=== PATIENT | female | born 1955 | race Caucasian/White ===

== ENCOUNTER 2018-02-28 08:11 | Day surgery (SDC) | payer BC ==
--- NOTE | 2018-02-16 22:47 | HP ---
PREOPERATIVE HISTORY AND PHYSICAL: DATE OF ADMISSION/SURGERY: 02/28/18 - [facility] DATE OF OFFICE VISIT: 02/15/18 ATTENDING SURGEON: Dr. Jerald Nix.* (DICTATED BY FRANNIE HACKETT) PROCEDURE: Left shoulder arthroscopic decompression and debridement. CHIEF COMPLAINT: Left shoulder. HISTORY OF PRESENT ILLNESS: Sharon is a 62-year-old female, who presents to clinic for left shoulder pain due to calcific tendinitis. She has failed conservative measures and therefore, agreed to undergo a left shoulder arthroscopic decompression and debridement with Dr. Nix on 02/28/18. PAST MEDICAL HISTORY: Hypertension, colitis, basal cell carcinoma. PAST SURGICAL HISTORY: Back surgery, tubal ligation, breast biopsy, skin cancer removal, varicose veins, cataracts. No prior complications with anesthesia. She does have some nausea with anesthesia. MEDICATIONS: 1. Amlodipine besylate/atorvastatin calcium 10/20 mg 1 by mouth every day. 2. Losartan potassium 50 mg 1 by mouth every day. 3. Vitamin D2 1000 units 1 capsule by mouth daily. 4. Vitamin B 1 by mouth daily. 5. Fish oil 1000 mg 1 by mouth daily. 6. Magnesium 300 mg 1 by mouth twice a day. 7. Melatonin 10 mg 1 by mouth at bedtime as needed for insomnia. 8. Ibuprofen 200d mg 2 to 3 tabs as needed for pain. ALLERGIES: No known drug allergies. FAMILY HISTORY: Positive for diabetes, hypertension, cancer. SOCIAL HISTORY: She lives with her spouse. She is retired. She denies tobacco use. She reports occasional alcohol consumption. She is right-hand dominant. REVIEW OF SYSTEMS: A 14-point review of systems was reviewed with the patient. Positive for current complaint, otherwise negative. Denies fever, chills, chest pain, shortness of breath, history of bleeding disorder, history of DVT or PE. PHYSICAL EXAMINATION GENERAL: A 62-year-old well-developed, well-nourished female, in no acute distress. VITAL SIGNS: Height 64, weight 199, pulse 104, blood pressure 126/68, respiratory rate 20, temperature 97.5, BMI 34.2. HEENT: Normocephalic, atraumatic. PERRLA. Throat clear. NECK: Supple. PULMONARY: Lungs are clear to auscultation bilaterally. No wheezing, rhonchi, or rales. CARDIO: Regular rate and rhythm. S1, S2. No murmurs, gallops, or rubs. No edema. ABDOMEN: Positive bowel sounds. Soft, nontender. NEURO: Alert and oriented x3. Cranial nerves grossly intact. Sensation intact to light touch. MUSCULOSKELETAL: Left upper extremity, skin is intact. Nontender to palpation. Forward flexion to 150, abduction to 110, external rotation to 45, internal rotation to posterior iliac spine. +5/5 strength to rotator cuff testing with minimal discomfort. Positive impingement, Speeds, [place] , [place]. +2 radial pulses. Sensation intact to light touch distally. DIAGNOSTIC STUDIES: MRI revealed no full-thickness rotator cuff tear. She does have calcific lesion in the rotator cuff with fluid around the bicipital groove and mild subluxation of the humeral head indicating partial-thickness tear of the subscapularis as well as AC joint osteoarthritis. IMPRESSION: Left shoulder calcific tendinitis. PLAN: The patient is scheduled to undergo a left shoulder arthroscopic decompression and debridement with Dr. Nix on 02/28/18. She will follow up 10 to 14 days postop for followup and suture removal. Percocet will be used for postop pain management. FRANNIE HACKETT [id number]/[facility] #: [id number] YARITZA
[~2018-02-28 08:11] MED LIST: Buffered Lidocaine 0.9% SYRIN* 5 ML/SYR SYRINGE INTRADERM ONE; Famotidine IV* 10 MG/ML 2 ML (20 mg) IV ONE; Midazolam* 1 MG/ML 5 ML VIAL (5 MG) ONE; Scopolamine 1.5 mg* PATCH TRANSDERM SCH; fentaNYL* 50 MCG/ML 2 ML VIAL (100 MCG VIAL) ONE
[2018-02-28] MEDS ORDERED: Famotidine IV* 10 MG/ML 2 ML (20 mg) ONE (08:23)
[2018-02-28] MEDS ORDERED: ceFAZolin 2 GM PREMIX in ORs 2 GM/50 ML BAG IVPB ONE (08:23)
[2018-02-28] MEDS ORDERED: Scopolamine 1.5 mg* PATCH ONE (08:23)
[2018-02-28] MEDS ORDERED: Lidocaine 1% INJ* 10 MG/ML 30 ML SDV ONE (08:31)
[2018-02-28] MEDS ORDERED: ROPIVACAINE 5 MG/ML 30 ML BTL (0.5%) ONE (08:31)
[2018-02-28] MEDS ORDERED: oxyCODONE TAB* 5 MG TAB PO PRN (08:38)
[2018-02-28] MEDS ORDERED: DiMENhydriNATE IV* 50 MG/ML VIAL IV PUSH PRN (08:38)
[2018-02-28] MEDS ORDERED: Naloxone* 0.4 MG/ML 1 ML VIAL IV PRN (08:38)
[2018-02-28] MEDS ORDERED: Acetaminophen TAB* 325 MG PO PRN (08:38)
[2018-02-28] MEDS ORDERED: HYDROmorphone INJ1* 1 MG/ML SYRINGE IV PRN (08:38)
[2018-02-28] MEDS ORDERED: Lidocaine 1% MPF wEPI 200,000* 30 ML SDV ONE (09:02)
[2018-02-28] MEDS ORDERED: Bupivacaine 0.25% SDV PF* 10 ML VIAL INJ ONE (09:02)
[2018-02-28] MEDS ORDERED: DiMENhydriNATE IV* 50 MG/ML VIAL ONE (10:25)
[2018-02-28] MEDS ORDERED: Lidocaine 2% PF * 5 ML VIAL ONE (10:25)
[2018-02-28] MEDS ORDERED: Ketorolac INJ* 30 MG/ML 1 ML VIAL ONE (10:25)
[2018-02-28] MEDS ORDERED: Ondansetron INJ* 2 MG/ML VIAL ONE (10:25)
[2018-02-28] MEDS ORDERED: Dexamethasone IV* 4 MG/ML 1 ML (4 MG) ONE (10:25)
[2018-02-28] MEDS ORDERED: Propofol* 10 MG/ML 20 ML BTL ONE (10:25)
[2018-02-28 12:06] VITALS: BP 135/72
--- NOTE | 2018-02-28 22:57 | OP ---
DATE OF OPERATION: 02/28/18 - [facility] DATE OF : 51 SURGEON: Jerald Nix MD MILLING/POLISHING OPERATOR: FRANNIE Teran. An paraprofessional education assistant was needed for the entirety of the case to help with positioning and retraction and utilized throughout all portions of the case. ANESTHESIOLOGIST: Dr. Gillette. ANESTHESIA: General interscalene block. PRE-OP DIAGNOSIS: Left shoulder calcific tendinitis as well as biceps tendinitis. POST-OP DIAGNOSES: 1. Left shoulder calcific tendinitis as well as biceps tendinitis. 2. High-grade partial thickness tear of the supraspinatus tendon. 3. Mild chondrosis of glenohumeral joint. OPERATIVE PROCEDURE: 1. Left shoulder arthroscopy with extensive glenohumeral debridement including biceps tenotomy. 2. Subacromial decompression with acromioplasty. 3. Rotator cuff repair using REGENETEN patch. 4. Removal of loose body 5 mm from the glenohumeral joint. INDICATIONS: Sharon Carrillo is a 62-year-old female with persistent shoulder pain. We diagnosed her with calcific tendonitis and we did an ultrasound breakup at the calcific lesion, but she still continues to have pain. Risks and benefits of surgery were discussed at length, included, but not limited to bleeding; infection; damage to nerves, vessels, surrounding structures; wound nonhealing; persistent pain, need for surgery; scaring; stiffness; incomplete relief symptoms; and risks of anesthesia. DESCRIPTION OF PROCEDURE: The patient was greeted in the preoperative area by the attending surgeon. Correct extremity was marked, consent was confirmed. The patient was brought back to the operating room suite where she was placed and underwent interscalene nerve block by the anesthesiologist, after which she was brought back to the operating room suite. She was placed in the supine position on the operating room table. She then underwent general anesthesia and LMA intubation, after which she was placed in the right lateral decubitus position. All bony prominences were padded. She was secured with a peg board. The left shoulder was draped unsterile with 10 pounds of traction. The left shoulder was prepped and draped in the usual sterile fashion beginning with chlorhexidine soap, scrub, and alcohol wipe, and a final prep with ChloraPrep. After appropriate surgical pause indicating site, side, procedure, and administration of antibiotics the posterolateral portal was made sharply with an 11 blade. Scope was introduced into the joint, joint was examined. The scope was positioned in the subacromial space, there was abundant synovitis present. The lateral portal was made in an outside-in fashion. Shaver was used to debride back the synovitis and the bursa. It revealed an irregular anterolateral acromial spur with a step off. The cuff appeared to be intact with some mild fraying. There was evidence of calcific lesion, which was palpated. Once this was visualized, the scope was then positioned in the intraarticular space. The biceps was intact, but there was a type-2 SLAP tear and biceps had synovitis and impingement. There was undersurface high-grade partial-thickness tearing of the supraspinatus tendon. Subscap was intact. The glenohumeral joint had grade 1 to 2 changes. The inferior recess was intact. There was a large loose body. The loose body was removed using a grasper. The shaver was used to debride back the anterior posterior and superior labrum. Biceps was taken through range of motion and found to have synovitis and inflammation. It was therefore tenotomized after discussion with the patient in preop. The undersurface of the rotator cuff was visualized and then debrided back using the shaver. Again, this was not full thickness, this was a high-grade partial thickness tear. The inferior recess was intact. There was abundant synovitis. Once the diagnostic arthroscopy was completed, attention was directed to the subacromial space again. With the scope back in the subacromial space, the undersurface of the acromion was skeletonized using electrocautery device. This revealed a ridge as well in the subacromial space. A full acromioplasty was then done with a 4-0 oval gertrude. Once this was completed, the cuff was then examined. The area of calcification, which was at the insertion near the infra and supraspinatus tendon was identified and then tenotomized using an 18-gauge needle. Some calcific lesion was then deployed, but not a lot. Attention was then directed to the cuff again there was a high- grade partial thickness tear. The patient is symptomatic. We treated this with REGENETEN patch. Size medium REGENETEN patch was brought to the field, placed under arthroscopic visualization through the lateral portal, and then secured through a separate stab incision with appropriate tendon abhijeet. Once this was secured medially, the tendon was secured laterally with bone abhijeet. The graft was found to be in good position. Final images were obtained. The wound was irrigated with sterile saline. Portal was closed with 3-0 nylon. Sterile dressings were applied. A Cryo/Cuff and a regular sling were applied. She was awoken from anesthesia and transferred to PACU in stable condition. POSTOPERATIVE PLAN: She will be non-weight bearing. Range of motion will begin in the next 2 to 3 days and she will start therapy next week. She will be discharged on pain medications and I will see the patient back in 10 to 14 days. [id number]/[facility] #: [id number] MTDD
== END 2018-02-28 12:06 | disposition home or self-care (01) ==
LOC: OREAST 08:11
PROVIDERS: ATTEND Orthopaedic Surgery
DX: M75.32 Calcific tendinitis of left shoulder (principal); M75.22 Bicipital tendinitis, left shoulder; I10 Essential (primary) hypertension; Z79.899 Other long term (current) drug therapy
CPT/HCPCS: A9270-GY; C1713; J0690; J1100; J1240; J1885; J2001; J2250; J2405; J2704; J2795; J3010; J3490